=== PATIENT | male | born 1955 | race Two or more races ===

== ENCOUNTER 2024-11-29 14:14 | Emergency (ER) | payer OTHER ==
[~2024-11-29] VITALS: Ht 175.3 cm; Wt 89.8 kg
[2024-11-29] MEDS ORDERED: PROTONIX40 MG (14:36)
[2024-11-29] MEDS ORDERED: ACETAMINOPHEN 500 MG GEL..CAP PO ONE ×2 (16:45→16:55)
[2024-11-29 17:35] LABS: HEMATOCRIT 38.9 % (39.0-48.0); HEMOGLOBIN 13.8 g/dL (13-16.00); MEAN CELL VOLUME 87.3 fL (80.0-100.00); MEAN CORPUSCULAR HEMOGLOBIN 31.1 pg (27.00-32.0); MEAN CORPUSCULAR HGB CONC 35.6 g/dl (32.0-36.0); RED BLOOD COUNT 4.45 M/uL (4.00-6.00); RED CELL DISTRIBUTION WIDTH 14.9 % (11.5-14.5)
[2024-11-29 17:37] LABS: PLATELET COUNT 92 K/uL (150-450)
[2024-11-29 17:53] LABS: CALCIUM 8.7 mg/dL (8.5-10.1); CREATININE SERUM 1.11 mg/dL (0.70-1.30); GFR 65.68; POTASSIUM 3.82 mEq/L (3.5-5.1)
== END 2024-11-29 18:59 | disposition home or self-care (01) ==
LOC: ER 14:17
PROVIDERS: Emergency Medicine
DX: J10.1 Influenza due to other identified influenza virus with other respiratory manifestations (principal); Z88.0 Allergy status to penicillin; Z20.822 Contact with and (suspected) exposure to COVID-19